=== PATIENT | female | born 1990 | race Caucasian/White ===

== ENCOUNTER 2021-05-19 07:29 | Inpatient (IN) | payer OTHER, SELFPAY ==
[2021-05-19] VITALS (12 sets, daily range): BP systolic 100–137; BP diastolic 65–99; PULSE 72–196; RESP 16; TEMP 36.2–36.3; O2SAT 83–98; BMI 34.0
--- NOTE | 2021-05-19 07:25 | POC_PTH ---
PATIENT: SHEREEN MCKEON LOC: [facility] U#:[id number] AGE/SX: 30/F ROOM: WP021 RE05/19/[address]: Elisabet Moreau CNM : 1990 BED: 1 DIS: 05/19/2021 SPEC #: [id number] RECD: 05/19/21 09:46 STATUS: SHAMIR NAVARRO #: [id number] VIN: 05/19/21 07:[address]: Elisabet Moreau DEPT: SURGICAL PATHOLOGY RECD BY: Amairani Chaney Tissues: Product of conception, NOS Procedures: Surgery Specimen Level IV HEADER OPERATION: Vaginal delivery PRE-OP DIAGNOSIS: demise TISSUE SUBMITTED: Placenta MICROSCOPIC DIAGNOSIS Immature placenta, 20 weeks (85 gm): Umbilical cord ? no evidence of funisitis. Placental membranes ? acute deciduitis. Placental disc ? acute deciduitis, increased intraparenchymal fibrin plaques and autolytic changes. AM:heri 05/22/2021 MICROSCOPIC DESCRIPTION Slides are reviewed. GROSS DESCRIPTION SPECIMEN: PLACENTA / CLINICAL INFORMATION: A. Weight: Not noted B. Gestational Age: 20 weeks C. Sex: Female Received fresh for Anora study. A portion of tissue is submitted for Anora studies. PLACENTAL WEIGHT (POST FIXATION): 85 gm PLACENTAL DIMENSIONS: 9 x 7 x 2 cm PLACENTAL SHAPE: Usual ovoid. It is disrupted. PLACENTAL WEIGHT FOR GESTATIONAL AGE: Under 10th percentile MEMBRANES - Present A. Insertion: Marginal B. Site of rupture from edge: The membranes are fragmented and distance of rupture cannot be assessed. C. Color of membrane: Gutierrez-voss D. Abnormalities: None UMBILICAL CORD - Present A. Color: Gutierrez-voss B. Insertion: Paracentral C. Length: 15 cm D. Diameter: 0.1 to 0.3 cm E. Number of vessels: Cannot be assessed. F. Abnormalities: None PLACENTAL DISC - Present A. Color of surface: Gutierrez-voss B. surface abnormalities: None C. Maternal cotyledons: Intact with minimal tears. Focal area of maternal surface show blood clots. D. Attached retro placental clot: No clot E. Cut surface: Dark red and spongy F. Lesions: None G. Separate clot: Absent SECTIONS SUBMITTED: 1. Membrane roll 2. Cord, end inked black 3. Placental disc, and maternal surfaces 4. Placental disc, and maternal surfaces 5. Placental disc, and maternal surfaces 6. Placental disc, and maternal surfaces SJ:heri 05/19/21 TC:2 CPT: 30152 ADDENDUM ADDENDUM ADDENDUM ADDENDUM ADDENDUM ADDENDUM ADDENDUM ADDENDUM ADDENDUM 05/30/2021 10:19 ADDENDUM 05/30/2021 10:19 ADDENDUM 05/30/2021 10:19 ADDENDUM 05/30/2021 10:19 ADDENDUM 05/30/2021 10:19 [facility] MICROARRAY CHROMOSOME ANALYSIS WITH PARENTAL SUPPORT RESULT: Normal female MICROARRAY RESULT: arr(1-22,X)x2 CLINICAL INTERPRETATION: Normal female result. Maternal cell contamination has been ruled out. Please see complete report in e-chart or EMR
[2021-05-19] MEDS: Oxytocin 10 UNITS/ML Vial IM (07:34)
--- NOTE | 2021-05-19 07:59 | PCM.HP.OB ---
HPI - General General Date of Admission: 05/19/21 HPI Narrative SHEREEN MCKEON, is a 30 F at 20.1 weeks gestation that presents for induction of labor for IUFD discovered yesterday in office via ultrasound. Maternal Data Information ANGEL Calculator Estimated Delivery Date Method Current WG Current Estimate 10/05/21 Manual 20w 1d PFSH PFSH Home Medications magnesium oxide 500 mg PO DAILY 05/26/17 [History Last Taken 05/25/17] vit no.[id number] [ Vitamins] 1 ea PO DAILY 05/26/17 [History Last Taken 05/25/17] sertraline [Zoloft] 100 mg PO DAILY 05/26/17 [History Last Taken 05/25/17] Allergy/AdvReac Type Severity Reaction Status Date / Time No Known Allergies Allergy Verified 05/26/17 03:06 Social History Smoking Status: Never smoker History Elective abortions Hx Para 1 Spontaneous abortions Hx # Term Pregnancies Ectopic pregnancies Hx # Pregnancies Multiple births # of living children ROS Eyes Eyes: Denies blurry vision, change in vision or spots in vision ENT HEENT: Denies dizziness or headache(s) Cardiovascular Cardiovascular: Denies abdominal pain, chest pain or dyspnea Respiratory/Chest Respiratory/Chest: Denies cough, dyspnea, shortness of breath at rest or shortness of breath with exertion Gastrointestinal Gastrointestinal: Denies abdominal pain, diarrhea or vomiting Genitourinary Genitourinary: Denies change in urinary stream, difficulty urinating or dysuria Musculoskeletal Musculoskeletal: Reports none Integumentary Integumentary: Denies rash Neurologic Neurologic: Denies dizziness, headache(s), memory loss or weakness Psychiatric Psychiatric: Reports none Vital Signs Vital Signs Vital Signs: 05/19/21 07:43 Pulse Rate 77 Blood Pressure 122/78 H BP Systolic 122 BP Diastolic 78 Physical Exam Const alert, oriented x3 and no apparent distress General Appearance: cooperative Orientation / Consciousness: awake Exam Limitations: no limitations HEENT normocephalic Head and Scalp: normal to inspection Eyes General Eye: normal appearance of both eyes Neck full ROM and no lymphadenopathy Lymph Lymphatic: no lymphadenopathy noted Chest inspection of chest normal Resp normal respiratory effort, normal air movement and clear to auscultation bilaterally Effort and Inspection: able to speak in complete sentences and symmetric chest movement Cardio regular rate and regular rhythm GI normal to inspection, nondistended, normoactive bowel sounds Manual OB Exam: presentation cephalic, dilated 4, effaced 80 and station 0 Amniotic Fluid: clear amniotic fluid Back/Spine normal ROM Extremity full ROM and no calf tenderness Skin no rashes or lesions noted General Skin Exam: no breakdown Neuro oriented x3 and CN's II-XII intact bilaterally Psych mental status grossly normal and thought process normal Labs Labs Labs: Blood Type A POSITIVE Antibody Screen NEGATIVE Hct 37.0 % (37-47) Hgb 11.8 g/dl (12.0-15.0) L Rubella IgG Antibody 364.3 IU/mL Hep Bs Antigen Negative (Negative) C.trachomatis DNA (PCR) Negative (Negative) Glucose 1 Hr 50 gm 129 mg/dL (70-140) Group B Strep DNA POSITIVE (Negative) H Rhogam given: No Assessment & Plan (1) IUFD at 20 weeks or more of gestation: PLAN: Admit to labor and delivery Routine labs Start IV fluids and titrate per orders Anticipate Dr. Nelson aware and collaborating physician
--- NOTE | 2021-05-19 08:09 | EX.PCM.OBRPT ---
Assessment & Plan (1) (spontaneous vaginal delivery): Maternal Data Information ANGEL Calculator Estimated Delivery Date Method Current Current Estimate 10/05/21 Manual 20w 1d Vaginal Delivery Maternal Presentation Maternal Presentation: Patient for induction of labor for IUFD Type of Induction: Cytotec Medical Reason for Induction: demise Operative Information Date of Procedure: 05/19/21 Type of Anesthesia: None Estimated Blood Loss: 50 Time of Delivery: 07:25 Findings Description of Procedure: Patient arrived to unit for induction of labor for IUFD discovered yesterday in office via ultrasound. Patient up to bathroom in room and and felt a gush of fluid and vaginal pressure. Nursing assisted patient to floor on blanket. Patient delivered non viable fetus intact. No gross movements noted. Cord clamped and cut. Pitocin 10 mg IM given x1. Patient assisted back to bed. I left the room and was called back due to feeling additional pressure. Placenta delivered spontaneously and intact. Dr. Nelson at bedside and vaginal exam completed. EBL 50cc. Post Vaginal Delivery Medications Given After Delivery: - (IM Pitocin) Complication Complications: None
--- NOTE | 2021-05-19 08:44 | PCM.DC ---
Discharge Instructions Diet Discharge Diet: No restrictions Activity May resume sexual activity in: 6-8 weeks Weight Bearing Status: Weight bearing as tolerated Dressing / Incision Call your doctor if you observe: Fever of 101 or Higher, Inability to urinate, Using more than 1 pad per hour, Shortness of breath, Chest pain, Calf discomfort and Uncontrolled pain Follow Up Care Test Results: Test results from this visit will be discussed in further detail at your follow-up appointment, if applicable. Discharge Plan Admission Admit Date/Time: 05/19/21 07:29 Primary Reason for Your Visit: delivery Attending Provider: Elisabet Moreau Discharge Orders/Prescriptions Prescriptions: No Action sertraline [Zoloft] 100 MG tablet 100 mg PO DAILY RF: 0 magnesium oxide 500 MG capsule 500 mg PO DAILY RF: 0 vit no.[id number] [ Vitamin] 1 EACH tablet 1 ea PO DAILY RF: 0 Disposition Disposition (needs filled in before D/C Order can be placed): Home, Self Care
[2021-05-19 09:07] LABS: Absolute Lymphocyte Count 1.24 X10^3/uL (0.83-4.51); Absolute Neutrophil Count 6.2 X10^3/uL (2.0-7.7); Basophil# 0.03 X10^3/uL; Basophil% 0.4 % (0-1); Eosinophil# 0.06 X10^3/uL; Eosinophils% 0.8 % (0-5); Hemoglobin 12.4 g/dL (12.0-15.0); Lymphocyte # 1.24 X10^3/ul (0.83-4.51); Lymphocyte % 15.8 % (19-41); Mean Corp Hgb Conc 34.4 g/dL (32-36); Mean Corpuscular Hgb 30.2 pg (27.0-32.0); Mean Corpuscular Volume 87.6 fL (81-99); Mean Platelet Vol. 10.2 fl (6.2-12.0); Monocyte# 0.35 X10^3/uL; Monocyte% 4.5 % (0-10); NRBC Flagged by Analyzer 0 % (0-5); Neutrophil # 6.15 X10^3/uL (2.7-7.7); Neutrophil % 78.2 % (47-70); Platelet Count 172 K/mm3 (150-450); RBC Distribution Width CV 12.4 % (11.6-14.6); RBC Distribution Width SD 39.6 fl (35.1-43.9); Red Blood Count 4.11 M/mm3 (4.2-5.4); White Blood Count 7.9 K/mm3 (4.4-11.0)
--- NOTE | 2021-05-19 09:44 | NURSING ---
Two doses of cytotec taken at home per patient. Last dose at 0100. Pt felt mild cramping prior to delivery.
[2021-05-19] MEDS: Naproxen 500 MG Tablet PO (10:01)
--- NOTE | 2021-05-19 12:00 | NURSING ---
late entry: infant weight 2oz / 6in long. head circumference 4in
[2021-05-19 14:05] LABS: Kleihauer-Betke Negative
[2021-05-22 14:11] LABS: Pathology Specimen OB SEE PATHOLOGY REPORT
== END 2021-05-19 12:30 | disposition home or self-care (01) | DRG 807 ==
PROVIDERS: Admitting Provider Advanced Practice Midwife; Visit Provider Advanced Practice Midwife
DX: O36.4XX0 Maternal care for intrauterine death, not applicable or unspecified (principal); Z37.1 Single stillbirth; Z3A.20 20 weeks gestation of pregnancy
CPT/HCPCS: 85025; 85460; 86850; 86900; 86901; 88305

== ENCOUNTER 2021-10-27 09:37 | Outpatient (CLI) | payer OTHER, SELFPAY ==
[2021-10-27 09:51] VITALS: BP 126/70; PULSE 74; RESP 16; TEMP 36.4; O2SAT 98; BMI 35.5
[2021-10-27] MEDS: 0.9% NaCl Peripheral Flush Adult/Peds IV (10:18)
[2021-10-27] MEDS: Lactated Ringers 1,000 ML 999 ML IV (10:20)
[2021-10-27 10:28] LABS: Hematocrit 34.2 % (37-47); Hemoglobin 11.7 g/dL (12.0-15.0); Mean Corp Hgb Conc 34.2 g/dL (32-36); Mean Corpuscular Hgb 28.5 pg (27.0-32.0); Mean Corpuscular Volume 83.4 fL (81-99); Platelet Count 194 K/mm3 (150-450); RBC Distribution Width CV 13.2 % (11.6-14.6); RBC Distribution Width SD 39.7 fl (35.1-43.9); White Blood Count 5.5 K/mm3 (4.4-11.0)
[2021-10-27 10:54] LABS: ALB/GLOB Ratio 1.1 RATIO (0.9-2.4); AST(SGOT) 28 U/L (15-37); Alanine Aminotransfer ALT/SGPT 65 U/L (13-56); Albumin, Serum 3.8 g/dL (3.2-5.0); Alkaline Phosphatase 53 U/L (45-117); Anion Gap 5 (5-15); BUN 5 mg/dL (7-18); Calcium,Total 9.1 mg/dL (8.5-10.1); Chloride 108 mmol/L (98-107); Creatinine, Serum 0.56 mg/dL (0.55-1.02); EST Glomerular Filtration Rate 135 mL/min (>60); Est Glom Filt Rate - Afr Amer 163 mL/min (>60); Estimated Creatinine Clearance 104.55 ml/min; Globulin 3.6 g/dL (2.2-4.2); Glucose 77 mg/dL (74-106); Potassium 3.7 mmol/L (3.5-5.1); Protein, Total 7.4 g/dL (6.4-8.2); Sodium Level 137 mmol/L (136-145); Thyroid Stim Hormone (TSH) 0.41 uIU/mL (0.358-3.74)
[2021-10-27] MEDS: 0.9% Normal Saline 1,000 ML 500 ML IV (12:12)
[2021-10-27 14:33] VITALS: BP 105/69; PULSE 81; RESP 16; O2SAT 100
== END 2021-10-27 23:59 | disposition home or self-care (01) ==
LOC: MEDOUTP 09:40
PROVIDERS: Referring Provider Obstetrics & Gynecology; Visit Provider Obstetrics & Gynecology
DX: O21.9 Vomiting of pregnancy, unspecified (principal); Z3A.00 Weeks of gestation of pregnancy not specified
CPT/HCPCS: 96365; 96367; 96361 ×2; 80053; 84443; 85027; J7030; J7120; A4216; J2405; J3490

== ENCOUNTER 2021-11-28 12:28 | Day surgery (SDC) | payer OTHER, SELFPAY ==
--- NOTE | 2021-11-27 16:20 | PCM.HP.BLA ---
History and Physical Date of Admission: 11/28/21 Pre-Op History and Physical- VIRTUAL ? HPI: The patient is a 31 year old female presenting for pre-operative visit. She is scheduled for Suction D&C, for missed ab 12 weeks on 11/28/21. Procedure discussed along with risks, benefits and complications. Other alternatives discussed for management. Consent form signed? No. WILL SIGN CONSENT day of surgery ? ? PAST MEDICAL HISTORY PAST MEDICAL HISTORY Diagnosis Date ? anxiety ? ? gestational hypertension ? ? ? PAST SURGICAL HISTORY PAST SURGICAL HISTORY Procedure Laterality Date ? PAST SURGICAL HISTORY OF ? ? ? wisdom teeth ? PAST SURGICAL HISTORY OF ? 2012 ? sebacious cyst removed from head ? ? ? CURRENT MEDICATIONS Current Outpatient Medications Medication Sig Dispense Refill ? promethazine (PHENERGAN) 25 mg tablet Take 0.5-1 tablets by mouth every 6 hours as needed. 30 tablet 1 ? ondansetron (ZOFRAN) 4 mg tablet Take 1 tablet by mouth every 8 hours as needed for nausea/vomiting. 30 tablet 1 ? multivitamin (CLASSIC ) 28 mg iron- 800 mcg tab(s) Take 1 tablet by mouth once daily. ? ? ? magnesium glycinate (MAG GLYCINATE ORAL) Take by mouth. ? ? ? sertraline (ZOLOFT) 100 mg tablet Take 1 tablet by mouth once daily. 90 tablet 3 ? No current facility-administered medications for this visit. ? ? ALLERGIES: Patient has no known allergies. ? PERSONAL HISTORY: SOCIAL HISTORY Social History ? Tobacco Use ? Smoking status: Never Smoker ? Smokeless tobacco: Never Used Vaping Use ? Vaping Use: Never used Substance Use Topics ? Alcohol use: No ? Drug use: No ? FAMILY HISTORY: FAMILY HISTORY FAMILY HISTORY Problem Relation Age of Onset ? Breast Cancer Mother 28 ? No Known Problems Father ? ? No Known Problems Sister ? ? No Known Problems Brother ? ? Breast Cancer Maternal Grandmother ? ? Hypertension Maternal Grandfather ? ? No Known Problems Paternal Grandmother ? ? No Known Problems Paternal Grandfather ? ? Breast Cancer Other ? ? MMGMO ? No Known Problems Son ? ? No Known Problems Son ? ? ? REVIEW OF SYMPTOMS: negative except as noted above PHYSICAL EXAMINATION: ? VITALS: Last menstrual period 08/26/2021, unknown if currently . ? GENERAL: The patient is well nourished, well hydrated in no acute distress. , The patient is oriented to time, place, and person. NECK: full range of motion ? IMPRESSION: Missed ab 12 weeks ? PLAN: Suction D&C for missed ab ? Pt has been counseled on risks/benefits and alternatives of surgery including but not limited to anesthesia, bleeding, infection, uterine perforation injury to pelvic structures including bowel, bladder, ureters and vessels. Retained products and hemorrhage were reviewed. Pt wishes to proceed with surgery at this time. ? Pt desires Anora testing ? Will sign consent tomorrow - day of surgery ? Doxycycline ordered for POST OP ? ? I have reviewed and updated past medical and surgical history, medications and allergies Eileen Nelson MD ?2:29 PM
[2021-11-28 13:26] VITALS: BP 117/78; PULSE 83; RESP 18; TEMP 36.9; O2SAT 100; BMI 35.5
[2021-11-28 13:29] LABS: Hematocrit 35.2 % (37-47); Mean Corp Hgb Conc 34.1 g/dL (32-36); Mean Corpuscular Hgb 28.6 pg (27.0-32.0); Mean Corpuscular Volume 83.8 fL (81-99); Mean Platelet Vol. 10.3 fl (6.2-12.0); Platelet Count 173 K/mm3 (150-450); RBC Distribution Width CV 12.7 % (11.6-14.6); RBC Distribution Width SD 38.4 fl (35.1-43.9); White Blood Count 7.3 K/mm3 (4.4-11.0)
[2021-11-28] MEDS: Lactated Ringers 1,000 ML 15 ML IV (13:35)
--- NOTE | 2021-11-28 13:55 | EX.PCM.DISCH ---
Discharge Instructions Procedure D&C Diet Discharge Diet: No restrictions Activity May resume sexual activity in: 1 week Dressing / Incision Call your doctor if you observe: Fever of 101 or Higher, Inability to urinate, Using more than 1 pad per hour and Uncontrolled pain Follow Up Care Please Follow Up With: Eileen Castañeda MD When: 1-2 weeks post OP if you need an appointment please call [phone] Test Results: Test results from this visit will be discussed in further detail at your follow-up appointment, if applicable. Discharge Plan Admission Attending Provider: Eileen Castañeda Primary Care Provider: Care Physician,Ester Primary Discharge Orders/Prescriptions Prescriptions: Continued sertraline [Zoloft] 100 MG tablet 100 mg PO DAILY RF: 0 Referrals / Follow Up: Care Physician,No Primary [Primary Care Provider] - Disposition Disposition (needs filled in before D/C Order can be placed): Home, Self Care
--- NOTE | 2021-11-28 13:56 | OP.PCM_ITS ---
Problems Associated Problem List Diagnoses (1) Missed : (2) 12 weeks gestation of : Report of Operation Date of Procedure: 11/28/21 Pre-Operative Diagnosis: missed 12 weeks gestation Post-Operative Diagnosis: same Surgery/Procedure Performed:: Suction Dilation and Curettage Description of Surgical Findings:: uterus 12 week size. Ultrasound performed- no apparent retained POC noted Surgeon: Eileen Castañeda extrusion die repair manager: None Type of Anesthesia: MAC Specimen's removed: products of conception Drains: none Estimated Blood Loss (mL): 10 Fluids Replaced: 350 Description of Procedure: After informed consent was obtained patient was taken to OR and placed in supine position. Anesthesia was given. patient was placed in yellow fin stirrups and prepped and draped in normal sterile fashion. bladder was drained with straight catheter with approximately 100cc of clear yellow urine expelled. Weighted speculum placed in posterior fornix of vaginal, single tooth tenaculum was used to gently grasped anterior lip of cervix. . Cervix was then gently dilated in an incremental fashion. Once adequate dilation was achieved the 11mm ghanaian suction catheter was placed attempted 12mm but unable to pass easily. suction curettage performed until no tissue was expelled and cavity was deemed empty. At this time 6mm suction catheter placed and fundal aspect and cornua of uterus were again suctioned as well with no remaining tissue noted. Ultrasound performed, Endometrial stripe seen, no signs of retained POC. The tissue was then sent for ANORA testing. No complications. At this time procedure was deemed complete and successful. Tenaculum removed, speculum removed. Good hemostasis appreciated. Vaginal sweep was negative. Instrument and lap count correct x 2. I anticipate normal postoperative course. Doxycycline given post op. Grafts/Implants Used: none Procedure Start Time: 14:23 Procedure Stop Time: 14:35 Complications none Admit VTE Documentation VTE Present on Admission: Yes VTE Mechan Device Prophylaxis: SCD's VTE Pharm Prophylaxis ordered?: No Reason prophylaxis not ordered:: Procedure Not Indicated
--- NOTE | 2021-11-28 14:00 | POC_PTH ---
PATIENT: SHEREEN MCKEON LOC: [facility] U#:[id number] AGE/SX: 31/F ROOM: RE11/28/[address]: Dr. Eileen Castañeda, MDDOB: 1990 BED: DIS: 11/28/2021 SPEC #: [id number] RECD: 11/28/21 14:52 STATUS: SHAMIR NAVARRO #: [id number] VIN: 11/28/21 14:[address]: Eileen Castañeda DEPT: SURGICAL PATHOLOGY RECD BY: Wendy Boone ENTERED: 11/29/21 10:05 SP TYPE: PROD CONC OTHR DR: No Primary Care Phys Tissues: Product of conception, NOS Procedures: Surgery Specimen Level IV HEADER OPERATION: Dilation and curettage, suction, Anora testing PRE-OP DIAGNOSIS: Missed TISSUE SUBMITTED: Products of conception ? for Anora testing MICROSCOPIC DIAGNOSIS Products of conception: Decidua, immature chorionic villi and tissue (products of conception). See comment. RITCHIE:heri 11/30/2021 COMMENT Results of Anora study will be reported as an addendum. MICROSCOPIC DESCRIPTION Slides are reviewed. GROSS DESCRIPTION Received fresh without fixative is one container labeled with the patient's name and designated products of conception. The specimen consists of multiple fragments of hemorrhagic soft tissue that in aggregate measure 11 x 10 x 2 cm. tissue is not identified. A portion of the specimen is submitted for Anora testing. Deputy Probation Officer tissue is submitted in three cassettes. / RITCHIE:heri 11/29/2021 TC:5 [facility]: [id number]
[2021-11-28 15:00] VITALS: BP 117/78; BP 91/45; PULSE 72; RESP 18; TEMP 36.6; O2SAT 100
[2021-11-28 15:05] VITALS: BP 117/78; BP 98/69; PULSE 77; RESP 16; O2SAT 99
[2021-11-28 15:10] VITALS: BP 103/65; BP 117/78; PULSE 76; RESP 16; O2SAT 100
[2021-11-28 15:11] LABS: Pathology Specimen OB SEE PATHOLOGY REPORT
[2021-11-28 15:20] VITALS: BP 101/71; BP 117/78; PULSE 71; RESP 16; TEMP 36.6; O2SAT 100
[2021-11-28 15:45] VITALS: BP 117/78
== END 2021-11-28 15:45 | disposition home or self-care (01) ==
LOC: SDC 12:31 → AC 12:33
PROVIDERS: Referring Provider Obstetrics & Gynecology; Visit Provider Obstetrics & Gynecology
PROC: (CPT 59812; principal; 2021-11-28 13:45)
DX: O03.4 Incomplete spontaneous abortion without complication (principal); O99.341 Other mental disorders complicating pregnancy, first trimester; F41.9 Anxiety disorder, unspecified; Z79.899 Other long term (current) drug therapy
CPT/HCPCS: 59812; 01965; 85027; 86850; 86900; 86901; 88305; J7120; J2405

== ENCOUNTER → 2022-07-25 | Outpatient (CLI) | payer OTHER, SELFPAY ==
[2022-07-25] MEDS: Lactated Ringers 1,000 ML 999 ML IV (10:30)
[2022-07-25] MEDS: 0.9% NaCl Peripheral Flush Adult/Peds IV (10:30)
[2022-07-25] MEDS: Ondansetron 4 MG/2 ML Vial IV (10:30)
[2022-07-25 10:41] VITALS: BP 120/70; PULSE 70
[2022-07-25 11:45] VITALS: BP 97/67; TEMP 35.9
== END | disposition home or self-care (01) ==
LOC: MEDOUTP 09:50
PROVIDERS: Referring Provider Advanced Practice Midwife; Visit Provider Advanced Practice Midwife
DX: O21.9 Vomiting of pregnancy, unspecified (principal); Z3A.01 Less than 8 weeks gestation of pregnancy
CPT/HCPCS: 96365; 96375; J7120; A4216; J2405

== ENCOUNTER 2023-01-11 20:50 | Outpatient (CLI) | payer OTHER, SELFPAY ==
[2023-01-11 21:08] VITALS: BMI 39.7
[2023-01-11 21:20] VITALS: BP 124/74; PULSE 80
[2023-01-11 21:21] VITALS: TEMP 36.5; O2SAT 98
--- NOTE | 2023-01-13 06:22 | OB.TRI.NOTE ---
HPI - General General Date of Admission: 01/12/23 Date of Service: 01/12/23 Chief Complaint: DFM HPI Narrative SHEREEN MCKEON, is a 32 F who presents with DFM. No other complaints. PFSH PFSH Medical History (Updated 01/13/23 @ 06:[address] Cathy Armas, DO) Anxiety Heartburn History of IBS Hx of sebaceous cyst Hypertension IUFD at 20 weeks or more of gestation Low iron Non-smoker (spontaneous vaginal delivery) Wears glasses Home Medications aspirin 81 mg tablet 81 mg PO DAILY 01/11/23 [History Last Taken 01/11/23 12:00] escitalopram oxalate 20 mg tablet (Lexapro) 20 mg PO DAILY 01/11/23 [History Last Taken 01/11/23 12:00] ferrous sulfate 325 mg (65 mg iron) tablet (Iron (ferrous sulfate)) 1 mg PO DAILY 01/11/23 [History Last Taken 01/11/23 12:00] efphmgnx-mzi-Hs-FA 1 mg tablet 1 tab PO DAILY 01/11/23 [History Last Taken 01/11/23 12:00] Allergy/AdvReac Type Severity Reaction Status Date / Time No Known Allergies Allergy Verified 01/11/23 21:13 Surgical History (Updated 11/27/21 @ 10:53 by Ro Silver) Hx of wisdom tooth extraction Social History Smoking Status: Never smoker History Elective abortions Hx Para 2 Spontaneous abortions Hx # Term Pregnancies Ectopic pregnancies Hx # Pregnancies Multiple births # of living children NST FHR Rate Baby A Baseline: 125 Variability:: Moderate Accelerations:: 10 x 10 Decelerations:: None NST Reactive:: Yes Uterine Activity:: none Assessment & Plan (1) 31 weeks gestation of : (2) Decreased movement: PLAN: NST reactive. D/c home
== END 2023-01-11 21:55 | disposition home or self-care (01) ==
LOC: WPOUT 21:05 → WP 21:06
PROVIDERS: Visit Provider Obstetrics & Gynecology
DX: O36.8130 Decreased fetal movements, third trimester, not applicable or unspecified (principal); Z3A.31 31 weeks gestation of pregnancy
CPT/HCPCS: 59025; 59050; 99221; G0378

== ENCOUNTER 2023-02-19 10:10 | Inpatient (IN) | payer OTHER, SELFPAY ==
[2023-02-19] VITALS (38 sets, daily range): BP systolic 110–156; BP diastolic 61–82; PULSE 64–85; TEMP 36.2–37.2; O2SAT 90–100; BMI 38.7
[2023-02-19] MEDS: Lactated Ringers 1,000 ML 50 ML IV (11:20)
[2023-02-19] MEDS: Acetaminophen 500 MG Tablet PO (11:33)
[2023-02-19] MEDS: Oxytocin 15 Units/NS 250ml 15 UNITS/250 ML IV.SOLN 2 UNITS IV (11:35)
[2023-02-19 11:50] LABS: Absolute Neutrophil Count 6.3 X10^3/uL (2.0-7.7); Basophil# 0.04 X10^3/uL; Basophil% 0.5 % (0-1); Eosinophil# 0.07 X10^3/uL; Eosinophils% 0.9 % (0-5); Hematocrit 37.8 % (37-47); Hemoglobin 12.5 g/dL (12.0-15.0); Lymphocyte % 15.9 % (19-41); Mean Corp Hgb Conc 33.1 g/dL (32-36); Mean Corpuscular Hgb 28.7 pg (27.0-32.0); Mean Corpuscular Volume 86.7 fL (81-99); Monocyte# 0.44 X10^3/uL; Monocyte% 5.4 % (0-10); NRBC Flagged by Analyzer 0 % (0-5); Neutrophil # 6.32 X10^3/uL (2.7-7.7); Neutrophil % 76.9 % (47-70); Platelet Count 158 K/mm3 (150-450); RBC Distribution Width CV 13.5 % (11.6-14.6); RBC Distribution Width SD 42.6 fl (35.1-43.9); Red Blood Count 4.36 M/mm3 (4.2-5.4); White Blood Count 8.2 K/mm3 (4.4-11.0)
--- NOTE | 2023-02-19 11:56 | PLAC_PTH ---
PATIENT: SHEREEN MCKEON LOC: [facility] U#:[id number] AGE/SX: 32/F ROOM: WP021 RE02/19/[address]: Dr. Kelsey Gunderson MD : 1990 BED: 1 DIS: 02/20/2023 SPEC #: [id number] RECD: 02/19/23 23:46 STATUS: SHAMIR REToan #: [id number] VIN: 02/19/23 11:[address]: Kelsey Gunderson DEPT: SURGICAL PATHOLOGY RECD BY: Amairani Chaney ENTERED: 02/20/23 09:44 SP TYPE: PLACENTA OTHR DR: No Primary Care Phys Tissues: A - Placenta, NOS B - parts, NOS Procedures: Surgery Specimen Level IV Surgery Specimen Level V HEADER OPERATION: Not noted PRE-OP DIAGNOSIS: demise 37 weeks TISSUE SUBMITTED: A - Placenta, B - tissue/parental WB MICROSCOPIC DIAGNOSIS A. Chavez placenta (347 gm): Umbilical cord - trivascular with no evidence of inflammation. Placental membranes - focal pigmented macrophages suggestive of meconium staining. Placental disc - foci of organizing intraparenchymal hemorrhage, Rizwan-Edgar change, mildly increased intraparenchymal fibrin plaques. B. Placental tissue, excision: Fragment of placental tissue with increased intraparenchymal fibrin plaques and Rizwan-Edgar change and with focal microcalcifications. Segment of placental vessel, trivascular with no evidence of inflammation. AM:heri 02/21/2023 MICROSCOPIC DESCRIPTION Slides are reviewed. GROSS DESCRIPTION A - SPECIMEN: PLACENTA / CLINICAL INFORMATION: A. Weight: Not noted B. Gestational Age: 37 weeks C. Sex: Not noted PLACENTAL WEIGHT (POST FIXATION): 347 gm PLACENTAL DIMENSIONS: 16.0 x 16.0 x 3.0 cm PLACENTAL SHAPE: Usual ovoid and contains near accessory lobe measuring 8.0 x 5.0 x 2.5 cm PLACENTAL WEIGHT FOR GESTATIONAL AGE: Within 10-99th percentile MEMBRANES - Present A. Insertion: Marginal B. Site of rupture from edge: At edge of placental disc C. Color of membrane: Hooks-voss D. Abnormalities: None UMBILICAL CORD - Present A. Color: Hooks-voss B. Insertion: Eccentric C. Length: 12.0 cm D. Diameter: 1.2 cm E. Number of vessels: Three F. Abnormalities: None PLACENTAL DISC - Present A. Color of surface: Hooks-voss B. surface abnormalities: None C. Maternal cotyledons: Intact with minimal tears D. Attached retro placental clot: No clot E. Cut surface: Dark red and spongy F. Lesions: Serial sections reveal two firm, hooks-white lesions near the placental cord ranging in size from 0.6 to 1.5 cm in greatest dimension. G. Separate clot: Absent SECTIONS SUBMITTED: 1. Umbilical cord ( end notched) 2. Umbilical cord, placental end 3. Membrane roll 4. Placental disc, and maternal surfaces, lesion 5. Placental disc, and maternal surfaces, lesion 6. Placental disc, and maternal surfaces B - Received fresh labeled with the patient's name is a specimen designated tissue. The specimen consists of three fragments of hooks tissue ranging in size from 0.5 to 50.0 cm and consisting of umbilical cord, portion of placenta and one nondescript tissue. A small amount of tissue and portion of placenta are submitted for Anora. Serial sections of the placental tissue does not reveal mass lesions. Serial sections of the umbilical cord reveal three vessels. Convention Services Manager sections are submitted in three cassettes as follows: 1 - placental tissue, 2 - one end of placental cord, 3 - the other end of placental cord. / AM:heri 02/20/2023 TC:5 CPT: 90491, 48516
[2023-02-19 12:00] LABS: Bedside Glucose 74 mg/dL (74-106)
[2023-02-19 12:36] LABS: Syphilis Antibodies Non-reactive
[2023-02-19 13:03] LABS: AST(SGOT) 14 U/L (15-37); Alanine Aminotransfer ALT/SGPT 43 U/L (13-56); Creatinine, Serum 0.61 mg/dL (0.55-1.02); EST Glomerular Filtration Rate 121 mL/min (>60); Est Glom Filt Rate - Afr Amer 146 mL/min (>60); Estimated Creatinine Clearance 94.22 ml/min; Uric Acid 4.2 mg/dL (2.6-6.0)
[2023-02-19 14:28] LABS: Protein:Creat Ratio 146 mg/g CRE (0-200)
[2023-02-19 16:26] LABS: Bedside Glucose 75 mg/dL (74-106)
[2023-02-19] MEDS: LACTATED RINGERS 500 ML 999 ML IV (18:18)
[2023-02-19] MEDS: fentaNYL-bupivacaine (epidural) 100 ML BAG EPIDURAL (20:00)
--- NOTE | 2023-02-19 20:50 | PCM.HP.OB ---
HPI - General General Date of Admission: 02/19/23 Date of Service: 02/19/23 Chief Complaint: demise HPI Narrative SHEREEN MCKEON, is a 32 F -1-2-2 who presents at 37 weeks gestation. Her has been complicated to date by lagging head growth, estimated weight in the 13th percentile, history of previous 20-week loss, and gestational diabetes. She presented to the office today and states she had good movement last night. She presented for an ultrasound and there were no heart tones detected. Maternal Data Information Final ANGEL: 03[birth year] Gestational age: 37 0/7 [facility] Medical History (Updated 02/19/23 @ 20:[address] Kelsey Gunderson MD) Anxiety Gestational diabetes Gestational HTN Heartburn History of IBS Hx of sebaceous cyst Hypertension IUFD at 20 weeks or more of gestation Low iron Non-smoker (spontaneous vaginal delivery) Wears glasses Home Medications aspirin 81 mg tablet 81 mg PO DAILY ghtn, hx pre-e, demises 01/11/23 [History Last Taken 02/18/23 12:00 162 mg] escitalopram oxalate 20 mg tablet (Lexapro) 20 mg PO DAILY anxiety/depression 01/11/23 [History Last Taken 02/18/23 12:15 20 mg] ferrous sulfate 325 mg (65 mg iron) tablet (Iron (ferrous sulfate)) 1 mg PO DAILY anemia 01/11/23 [History Last Taken 01/11/23 12:00] upwoupfo-vuz-Nd-FA 1 mg tablet 1 tab PO DAILY 01/11/23 [History Last Taken 02/18/23 20:00 1 TAB] Allergy/AdvReac Type Severity Reaction Status Date / Time No Known Allergies Allergy Verified 02/19/23 12:06 Surgical History (Updated 02/19/23 @ 12:27 by Brigitte Crews) H/O dilation and curettage Hx of wisdom tooth extraction Social History Smoking Status: Never smoker History Elective abortions Hx Para 3 Spontaneous abortions Hx # Term Pregnancies Ectopic pregnancies Hx # Pregnancies Multiple births # of living children ROS Constitutional Constitutional: Denies fatigue, fever(s) or malaise Eyes Eyes: Denies change in vision ENT HEENT: Denies dizziness or headache(s) Cardiovascular Cardiovascular: Denies chest pain, dyspnea or lightheadedness Respiratory/Chest Respiratory/Chest: Denies cough or dyspnea Gastrointestinal Gastrointestinal: Denies change in bowel habits Genitourinary Genitourinary: Denies burning urination or genital lesions Integumentary Integumentary: Denies rash Neurologic Neurologic: Denies confusion, dizziness, headache(s), numbness or weakness Vital Signs Vital Signs Vital Signs: 02/19/23 10:58 02/19/23 10:58 02/19/23 10:58 Temperature Temperature Source Oral Pulse Rate 74 Blood Pressure 133/82 H BP Systolic 133 BP Diastolic 82 Pulse Ox 02/19/23 10:58 02/19/23 13:12 02/19/23 13:12 Temperature 98.9 F Temperature Source Pulse Rate 71 Blood Pressure 128/76 H BP Systolic 128 BP Diastolic 76 Pulse Ox 02/19/23 13:12 02/19/23 14:56 02/19/23 14:56 Temperature Temperature Source Pulse Rate 67 Blood Pressure 138/76 H BP Systolic 138 BP Diastolic 76 Pulse Ox 100 02/19/23 14:56 02/19/23 14:57 02/19/23 14:57 Temperature Temperature Source Oral Pulse Rate 71 Blood Pressure BP Systolic BP Diastolic Pulse Ox 100 02/19/23 14:56 02/19/23 16:32 02/19/23 16:32 Temperature 98.6 F Temperature Source Pulse Rate 76 Blood Pressure 132/78 H BP Systolic 132 BP Diastolic 78 Pulse Ox 02/19/23 16:32 02/19/23 16:32 02/19/23 17:26 Temperature 97.9 F Temperature Source Oral Pulse Rate Blood Pressure 116/78 BP Systolic 116 BP Diastolic 78 Pulse Ox 02/19/23 17:26 02/19/23 17:26 02/19/23 17:26 Temperature 98.9 F Temperature Source Oral Pulse Rate 68 Blood Pressure BP Systolic BP Diastolic Pulse Ox 02/19/23 18:23 02/19/23 18:23 02/19/23 18:23 Temperature Temperature Source Oral Pulse Rate 65 Blood Pressure 139/81 H BP Systolic 139 BP Diastolic 81 Pulse Ox 02/19/23 19:05 02/19/23 19:05 02/19/23 19:06 Temperature Temperature Source Pulse Rate 81 Blood Pressure 156/81 H BP Systolic 156 BP Diastolic 81 Pulse Ox 100 02/19/23 19:06 02/19/23 19:08 02/19/23 19:08 Temperature Temperature Source Pulse Rate 82 75 Blood Pressure 156/80 H BP Systolic 156 BP Diastolic 80 Pulse Ox 02/19/23 19:10 02/19/23 19:10 02/19/23 19:13 Temperature Temperature Source Pulse Rate 79 Blood Pressure 129/75 H BP Systolic 129 BP Diastolic 75 Pulse Ox 100 02/19/23 19:13 02/19/23 19:15 02/19/23 19:15 Temperature Temperature Source Pulse Rate 73 72 Blood Pressure BP Systolic BP Diastolic Pulse Ox 100 02/19/23 19:16 02/19/23 19:16 02/19/23 19:18 Temperature Temperature Source Pulse Rate 85 Blood Pressure 145/69 H BP Systolic 145 BP Diastolic 69 Pulse Ox 90 02/19/23 19:18 02/19/23 19:20 02/19/23 19:20 Temperature Temperature Source Pulse Rate 75 78 Blood Pressure BP Systolic BP Diastolic Pulse Ox 100 02/19/23 19:23 02/19/23 19:23 02/19/23 19:25 Temperature Temperature Source Pulse Rate 74 73 Blood Pressure 131/70 H BP Systolic 131 BP Diastolic 70 Pulse Ox 02/19/23 19:25 02/19/23 19:28 02/19/23 19:28 Temperature Temperature Source Pulse Rate 76 Blood Pressure 125/69 H BP Systolic 125 BP Diastolic 69 Pulse Ox 100 02/19/23 19:30 02/19/23 19:30 02/19/23 19:33 Temperature Temperature Source Pulse Rate 75 Blood Pressure 134/66 H BP Systolic 134 BP Diastolic 66 Pulse Ox 100 02/19/23 19:33 02/19/23 19:35 02/19/23 19:35 Temperature Temperature Source Pulse Rate 65 69 Blood Pressure BP Systolic BP Diastolic Pulse Ox 100 02/19/23 19:38 02/19/23 19:38 02/19/23 19:40 Temperature Temperature Source Pulse Rate 70 66 Blood Pressure 122/73 H BP Systolic 122 BP Diastolic 73 Pulse Ox 02/19/23 19:40 02/19/23 19:43 02/19/23 19:43 Temperature Temperature Source Pulse Rate 76 Blood Pressure 113/71 BP Systolic 113 BP Diastolic 71 Pulse Ox 100 02/19/23 19:45 02/19/23 19:45 02/19/23 19:48 Temperature Temperature Source Pulse Rate 66 Blood Pressure 121/71 H BP Systolic 121 BP Diastolic 71 Pulse Ox 100 02/19/23 19:48 02/19/23 19:50 02/19/23 19:50 Temperature Temperature Source Pulse Rate 66 64 Blood Pressure BP Systolic BP Diastolic Pulse Ox 100 02/19/23 19:54 02/19/23 19:55 02/19/23 19:55 Temperature Temperature Source Temporal Pulse Rate 70 Blood Pressure BP Systolic BP Diastolic Pulse Ox 100 02/19/23 19:54 02/19/23 20:11 02/19/23 20:11 Temperature 98.1 F Temperature Source Pulse Rate 67 Blood Pressure 110/68 BP Systolic 110 BP Diastolic 68 Pulse Ox Weight Weight: 89.811 kg Body Mass Index (BMI) 38.7 Physical Exam Const alert and no apparent distress General Appearance: cooperative HEENT normocephalic Resp normal respiratory effort Cardio regular rate GI soft to palpation GI Narrative: gravid, nontender, appropriate for gestational age Extremity no calf tenderness General Extremity: edema Skin no wounds Rashes: No rashes noted Psych activity/motor behavior normal Labs Labs Labs: Blood Type A POSITIVE Antibody Screen NEGATIVE Hct 37.8 % (37-47) Hgb 12.5 g/dL (12.0-15.0) Syphilis Total Ab Non-reactive Rubella IgG Antibody 364.3 IU/mL Hep Bs Antigen Negative (Negative) Glucose 1 Hr 50 gm 129 mg/dL (70-140) Group B Strep DNA POSITIVE (Negative) H Rhogam given: No Assessment & Plan (1) High risk multigravida in third trimester: PLAN: High risk multigravida with full-term intrauterine demise. Risk benefits and alternatives to various delivery options were discussed with patient, her questions were answered to her satisfaction she desires to proceed. Blood pressure is mildly elevated in the office today. Check preeclampsia labs. Estimated weight is less than 4000 g clinically and pelvis is clinically adequate to expect vaginal delivery. Patient to proceed with Pitocin and artificial rupture membrane induction. May have routine pain control measures as needed and desired. Patient does desire to have chromosomal analysis on the fetus. (2) 37 weeks gestation of :
[2023-02-19] MEDS: Lactated Ringers 1,000 ML 200 ML IV (21:08)
[2023-02-19 21:19] LABS: Bedside Glucose 71 mg/dL (74-106)
--- NOTE | 2023-02-19 23:03 | EX.PCM.OBRPT ---
Assessment & Plan (1) IUFD (intrauterine ): (2) 37 weeks gestation of : Maternal Data Information Final ANGEL: 03[birth year] Gestational age: 37 0/7 Vaginal Delivery Maternal Presentation Maternal Presentation: Medically Indicated Induction Type of Induction: Pitocin and Amniotomy Medical Reason for Induction: demise Operative Information Date of Procedure: 02/19/23 Pre-Operative Diagnosis: IUFD, labor Post-Operative Diagnosis: same Surgery / Procedure Performed: Forceps Assisted Vaginal Delivery Type of Anesthesia: Epidural Drain: Acosta to straight drain Estimated Blood Loss: 300 Findings Description of Procedure: A female was delivered BLAIR over an intact perineum. A loose nuchal cord ?1 was easily reduced. The remainder the infant was delivered with maternal pushing and gentle traction only in less than 15 seconds. The infant was limp and voss. There were no respiratory efforts and no heart rate. The Pitocin infusion was initiated for active management of the third stage. The cord was clamped and cut . The was placed on the maternal abdomen the placenta was delivered spontaneously and intact. It was a bilobed placenta. There were no knots in the cord. There was no tight nuchal cord. The cervix and vagina were intact. Sponge and needle counts were correct. A vaginal sweep was completed by me. Presentation: BLAIR Amniotic Membrane Rupture Type: Artificial Amniotic Fluid Description: Clear Placental Delivery Description: Spontaneous Placenta Disposition: Sent to Pathology Cord Vessel Description: 3 Vessels Cord Entanglement: Around neck x 1, loose Nuchal Cord Compression: Without compression A Gender: Female (Otilia) (1 minute): 0 (5 minute): 0 Delayed Cord Clamping: No Post Vaginal Delivery Medications Given After Delivery: IV Pitocin Episiotomy Description: None Laceration: None Complication Complications: None
[2023-02-19] MEDS: Oxytocin 15 Units/NS 250ml 15 UNITS/250 ML IV.SOLN 83 UNITS IV (23:20)
[2023-02-20] VITALS (9 sets, daily range): BP systolic 103–134; BP diastolic 55–76; PULSE 71–86; RESP 16; TEMP 36.1–36.9; O2SAT 98–100
[2023-02-20 06:14] LABS: Bedside Glucose 111 mg/dL (74-106)
--- NOTE | 2023-02-20 08:40 | PN.OBGYN_ITS ---
Subjective Subjective Average lochia, pain well controlled. Objective Data Objective Data Vital Signs: Vital Signs Temp Pulse Resp BP Pulse Ox O2 Del Method 97.0 F L 75 16 109/66 99 Room Air 02/20/23 04:12 02/20/23 04:12 02/20/23 04:12 02/20/23 04:12 02/20/23 04:12 02/20/23 04:12 Oxygen Delivery Method Room Air Weight: 89.811 kg Body Mass Index (BMI) 38.7 Intake & Output: Intake and Output for Last 24 Hours 02/18/23 02/19/23 02/20/23 23:59 23:59 23:59 Intake Total 2051.67 / 2051.67 228.25 / 228.25 Output Total 700 / 700 1800 / 1800 Balance 1351.67 / 1351.67 -1571.75 / -1571.75 Lab / Micro Data 02/19/23 11:20 02/19/23 11:20 Labs: Laboratory Results - last 24 hr 02/19/23 11:20: WBC 8.2, RBC 4.36, Hgb 12.5, Hct 37.8, MCV 86.7, MCH 28.7, MCHC 33.1, RDW Std Deviation 42.6, RDW Coeff of Brett 13.5, Plt Count 158, MPV 11.0, Immature Gran % (Auto) 0.400, Neut % (Auto) 76.9 H, Lymph % (Auto) 15.9 L, [place] % (Auto) 5.4, Eos % (Auto) 0.9, Baso % (Auto) 0.5, Absolute Neuts (auto) 6.3, Absolute Lymphs (auto) 1.30, Nucleated RBC % 0, Creatinine 0.61, Estim Creat Clear Calc 94.22, Est GFR (MDRD) Af Amer 146, Est GFR (MDRD) Non-Af 121, Uric Acid 4.2, AST 14 L, ALT 43, Syphilis Total Ab Non-reactive, Blood Type A POSITIVE, Antibody Screen NEGATIVE 02/19/23 11:39: POC Glucose 74 02/19/23 13:55: U Random Total Protein 6.0, Urine Creatinine 41.10, Protein/Creatinin Ratio 146 02/19/23 16:06: POC Glucose 75 02/19/23 20:57: POC Glucose 71 L 02/20/23 05:56: POC Glucose 111 H Physical Exam Const alert and no apparent distress Narrative: Fundus firm, below umbilicus. Assessment & Plan (1) IUFD (intrauterine ): PLAN: PPD #1 s/p . IUFD. Questions answered to bet of my ability. Desires D/c home today. (2) 37 weeks gestation of :
--- NOTE | 2023-02-20 08:44 | DCINST_ITS ---
Discharge Instructions Diet Discharge Diet: No restrictions Activity May resume sexual activity in: 6-8 weeks Weight Bearing Status: Weight bearing as tolerated Dressing / Incision Call your doctor if you observe: Fever of 101 or Higher, Inability to urinate, Using more than 1 pad per hour, Shortness of breath, Chest pain, Calf discomfort and Uncontrolled pain Follow Up Care When: 2 weeks virtual visit/ 6 weeks in office Test Results: Test results from this visit will be discussed in further detail at your follow- up appointment, if applicable. Discharge Plan Admission Admit Date/Time: 02/19/23 10:10 Primary Reason for Your Visit: Delivery Attending Provider: Kelsey Gunderson Primary Care Provider: Care Physician,Ester Primary Discharge Orders/Prescriptions Prescriptions: Continued cygxgwoe-[id number]-FA 1 mg Tablet 1 tab PO DAILY escitalopram oxalate [Lexapro] 20 mg Tablet 20 mg PO DAILY Discontinued ferrous sulfate [Iron (ferrous sulfate)] 325 mg (65 mg iron) Tablet 1 mg PO DAILY aspirin 81 mg Tablet 81 mg PO DAILY Referrals / Follow Up: Care Physician,No Primary [Primary Care Provider] - Disposition Disposition (needs filled in before D/C Order can be placed): Home, Self Care
--- NOTE | 2023-02-20 09:12 | NURSING ---
0845 pt ambulate to bathroom pt gait steady- pt void 600 cc urine and passed approximatley 60 cc clot- reviewed lochia changes and what to expect including when to notify the doctor
--- NOTE | 2023-02-20 10:01 | NURSING ---
IBCLC round to discuss anticipatory guidance with milk coming in in 2-3 days. Different options discussed, as well as outpatient support available for breast discomfort and questions. Patient reports she has a pump at home and is really leaning towards pumping and donating. A pumping after loss brochure given with the [facility] mother's milk bank # and our phone # given to patient. Leatha had a few questions about the donation process and said she would call us with any future questions or concerns. She reports she knows how to use her pump and has plenty of storage bags as she was all set up and ready for this baby.
--- NOTE | 2023-02-20 12:16 | NURSING ---
1135 home here- into see pt
--- NOTE | 2023-02-20 12:17 | NURSING ---
5979 discharge instructions given pt has emotional support from family and is planning on seeing her warp picker this afternoon; pt verbalizes understanding with discharge instructions and plans on calling her doctor if her anxiety or depression worsens or if she feels like hurting herself or someone else.
[2023-02-22 15:42] LABS: Pathology Specimen OB SEE PATHOLOGY REPORT
== END 2023-02-20 11:55 | disposition home or self-care (01) | DRG 807 ==
PROVIDERS: Admitting Provider Obstetrics & Gynecology; Referring Provider Obstetrics & Gynecology; Visit Provider Obstetrics & Gynecology
DX: O36.4XX0 Maternal care for intrauterine death, not applicable or unspecified (principal); Z37.1 Single stillbirth; O26.23 Pregnancy care for patient with recurrent pregnancy loss, third trimester; F41.9 Anxiety disorder, unspecified; O99.344 Other mental disorders complicating childbirth; O43.193 Other malformation of placenta, third trimester; O69.81X0 Labor and delivery complicated by cord around neck, without compression, not applicable or unspecified; Z3A.37 37 weeks gestation of pregnancy; Z79.899 Other long term (current) drug therapy; Z87.59 Personal history of other complications of pregnancy, childbirth and the puerperium
CPT/HCPCS: 82565; 82570; 82962; 84156; 84450; 84460; 84550; 85025; 86780; 86850; 86900; 86901; 88305; 88307; 99221; J7120; G0378

== ENCOUNTER 2023-09-11 10:00 | Outpatient (CLI) | payer OTHER, SELFPAY ==
[2023-09-11] MEDS: Lactated Ringers 1,000 ML 999 ML IV (10:16)
[2023-09-11] MEDS: 0.9% NaCl Peripheral Flush Adult/Peds IV (10:17)
[2023-09-11 10:20] VITALS: BP 110/73; PULSE 78; RESP 16; TEMP 36.2; O2SAT 98; BMI 37.0
[2023-09-11] MEDS: Ondansetron 8 MG in 0.9% Normal Saline (50mL Bag) 50 ML 216 MG IV (10:25)
[2023-09-11 11:56] VITALS: BP 99/64; RESP 16
== END 2023-09-11 10:01 | disposition home or self-care (01) ==
LOC: MEDOUTP 10:01
PROVIDERS: Referring Provider Advanced Practice Midwife; Visit Provider Advanced Practice Midwife
DX: O21.0 Mild hyperemesis gravidarum (principal); Z3A.00 Weeks of gestation of pregnancy not specified
CPT/HCPCS: 96365; J7120; A4216; J2405; J3490

== ENCOUNTER 2024-03-20 13:34 | Outpatient (CLI) | payer OTHER, SELFPAY ==
[2024-03-20 13:49] VITALS: BMI 39.6
[2024-03-20 14:00] VITALS: RESP 16; TEMP 36.7; O2SAT 100
[2024-03-20 14:10] VITALS: BP 131/84; PULSE 80
[2024-03-20 14:11] VITALS: PULSE 88; O2SAT 100
[2024-03-20 14:27] VITALS: BP 129/76; PULSE 85
[2024-03-20 14:41] VITALS: BP 125/76; PULSE 80
[2024-03-20 14:46] LABS: Mucous, Urine 0 SEEN /hpf (<or=2+); Red Blood Cells-Urine 0 SEEN /hpf (0-5); White Blood Cells 0 SEEN /hpf (0-5)
[2024-03-20 14:50] LABS: Color, Urine Straw (Yellow); Glucose, Dipstick Normal (Normal); Ketone-Dipstick Negative (Negative); Leukocyte Esterase-Dipstick 25 /ul (Negative); Nitrite-Dipstick Negative (Negative); Occult Blood-Urine Negative /ul (Negative); Protein-Dipstick Negative (Negative); Urine Bilirubin Dipstick Negative (Negative); Urine Clarity Clear (Clear); Urine Urobilinogen Normal (Normal)
[2024-03-20 14:59] LABS: Bacteria 1+ /hpf (None Seen); Squamous Epithelial Cells - UA 5-10 SEEN /hpf (5-10)
[2024-03-20] MEDS: Nitrofurantoin Macrocrystals 100 MG Capsule PO (16:51)
--- NOTE | 2024-03-20 18:49 | OB.TRI.NOTE ---
HPI - General HPI Narrative SHEREEN MCKEON, is a 33 F who presents to triage with lower pelvic pressure. Positive movement. Maternal Data Information ANGEL Calculator Estimated Delivery Date Method Current WG Current Estimate 04/23/24 Manual 35w 1d Final ANGEL: 04/23/24 PFSH PFSH Medical History (Updated 03/20/24 @ 18:54 by Elisabet Moreau CNM) IUFD (intrauterine ) Gestational HTN Gestational diabetes Wears glasses Anxiety Low iron History of IBS Heartburn Non-smoker Hypertension Hx of sebaceous cyst (spontaneous vaginal delivery) IUFD at 20 weeks or more of gestation Home Medications ?Medication ?Instructions ?Recorded ?Last Taken ?Type escitalopram oxalate 20 mg tablet 20 mg PO DAILY anxiety/depression 01/11/23 02/18/23 12:15 History (Lexapro) 20 mg pkgbkmpk-jol-Lt-FA 1 mg 1 tab PO DAILY 01/11/23 02/18/23 20:00 History tablet 1 TAB metoclopramide HCl 10 mg tablet 10 mg PO DAILY 09/11/23 Unknown History (Reglan) ondansetron 4 mg disintegrating 4 mg PO Q6H 09/11/23 Unknown History tablet progesterone 50 mg/mL 50 mg IM DAILY 09/11/23 Unknown History intramuscular oil promethazine 25 mg tablet 25 mg PO TID PRN nausea and 09/11/23 Unknown History vomiting Allergy/AdvReac Type Severity Reaction Status Date / Time No Known Allergies Allergy Verified 02/19/23 12:06 Surgical History (Updated 02/19/23 @ 12:27 by Brigitte Crews) H/O dilation and curettage Hx of wisdom tooth extraction Social History Smoking Status: Never smoker History Elective abortions Hx Para 3 Spontaneous abortions Hx # Term Pregnancies Ectopic pregnancies Hx # Pregnancies Multiple births # of living children ROS Eyes Eyes: Denies blurry vision Cardiovascular Cardiovascular: Reports none; Denies chest pain at rest, chest pain with activity or dizziness Respiratory/Chest Respiratory/Chest: Denies cough or dyspnea Gastrointestinal Gastrointestinal: Reports none and other; Denies diarrhea or vomiting Genitourinary Genitourinary: Denies dysuria Musculoskeletal Musculoskeletal: Reports none Integumentary Integumentary: Reports none; Denies rash Neurologic Neurologic: Denies dizziness, headache(s) or other visual disturbances Psychiatric Psychiatric: Reports none Physical Exam Const alert and no apparent distress General Appearance: cooperative Orientation / Consciousness: awake Exam Limitations: no limitations HEENT normocephalic Eyes General Eye: normal appearance of both eyes Neck full ROM Chest inspection of chest normal Resp normal respiratory effort and normal air movement Effort and Inspection: symmetric chest movement Auscultation: clear to auscultation bilaterally Cardio regular rate GI soft to palpation, non-tender and non-distended Inspection: and other Back/Spine normal ROM Extremity full ROM, normal capillary refill and no calf tenderness Skin no rashes or lesions noted Neuro oriented x3 and CN's II-XII intact bilaterally Psych mental status grossly normal NST FHR Rate Baby A Baseline: 125 Variability:: Moderate Accelerations:: 15 x 15 Decelerations:: None NST Reactive:: Yes Uterine Activity:: None Assessment & Plan (1) 35 weeks gestation of : (2) Pelvic pressure in : (3) History of IUFD: (4) Anxiety: COMMENT: ON MED PLAN: Plan NST reactive CE- closed No contractions via TOCO or palpated UA- positive for leukocytes and bacteria- start treatment Urine culture sent D/C home with follow up in office this week
== END 2024-03-20 17:00 | disposition home or self-care (01) ==
LOC: WPOUT 13:42 → WP 13:43
PROVIDERS: Referring Provider Advanced Practice Midwife; Visit Provider Advanced Practice Midwife
DX: O99.891 Other specified diseases and conditions complicating pregnancy (principal); R10.2 Pelvic and perineal pain; O99.343 Other mental disorders complicating pregnancy, third trimester; F41.9 Anxiety disorder, unspecified; O09.293 Supervision of pregnancy with other poor reproductive or obstetric history, third trimester; Z3A.35 35 weeks gestation of pregnancy; Z79.899 Other long term (current) drug therapy; Z86.32 Personal history of gestational diabetes; Z87.59 Personal history of other complications of pregnancy, childbirth and the puerperium
CPT/HCPCS: 59025; 59050; 81001; 87086; 87088; 99221; G0378

== ENCOUNTER 2024-03-27 07:30 | Inpatient (IN) | payer OTHER, SELFPAY ==
[2024-03-27] VITALS (15 sets, daily range): BP systolic 115–135; BP diastolic 61–84; PULSE 76–84; RESP 16; TEMP 36.4–36.9; O2SAT 96–99; BMI 39.9
[2024-03-27] MEDS: Lactated Ringers 1,000 ML 50 ML IV (07:25)
[2024-03-27] MEDS: 0.9% Normal Saline Single 100 ML IV.SOLN. INTRA-UTER (08:08)
[2024-03-27 08:27] LABS: Absolute Neutrophil Count 7.4 X10^3/uL (2.0-7.7); Basophil# 0.03 X10^3/uL; Basophil% 0.3 % (0-1); Eosinophil# 0.12 X10^3/uL; Eosinophils% 1.2 % (0-5); Hematocrit 34.9 % (37-47); Hemoglobin 11.5 g/dL (12.0-15.0); Lymphocyte % 17.9 % (19-41); Mean Corpuscular Hgb 28.8 pg (27.0-32.0); Mean Corpuscular Volume 87.3 fL (81-99); Mean Platelet Vol. 10.9 fl (6.2-12.0); Monocyte# 0.58 X10^3/uL; Monocyte% 5.8 % (0-10); NRBC Flagged by Analyzer 0 % (0-5); Neutrophil # 7.44 X10^3/uL (2.7-7.7); Neutrophil % 73.7 % (47-70); Platelet Count 136 K/mm3 (150-450); RBC Distribution Width SD 40.5 fl (35.1-43.9); White Blood Count 10.1 K/mm3 (4.4-11.0)
[2024-03-27] MEDS: Oxytocin 15 Units/NS 250ml 15 UNITS/250 ML IV.SOLN 2 UNITS IV (09:08)
[2024-03-27 10:34] LABS: Syphilis Antibodies Non-reactive
--- NOTE | 2024-03-27 10:54 | PCM.HP.OB ---
HPI - General General Date of Admission: 03/27/24 Date of Service: 03/27/24 Chief Complaint: induction of labor HPI Narrative SHEREEN MCKEON, is a 33 F 7 para 4-3-1-1 2 at 36 and 1 sevenths weeks. History of 20-week demise and 37-week demise presents for induction of labor due to history of demise is and small placentas. Elects for late delivery due to history of unexplained full-term loss at 37 weeks last despite antepartum testing and growth scans. She has had good movement. She denies any vaginal bleeding or leaking of fluid. is complicated date by history of demise, anxiety, gestational diabetes in her last . She had an elevated 1 hour and declined 3-hour and has been checking her blood sugars regularly and they have been well-controlled. We have been considering her class A1 gestational diabetic. She has been taking aspirin and Lovenox due to history of 2 previous losses despite negative thrombophilia workup. Maternal Data Information ANGEL Calculator Estimated Delivery Date Method Current WG Current Estimate 04/23/24 Manual 36w 1d Final ANGEL: 04/23/24 Gestational age: 36 07/28 [facility] Medical History (Updated 03/27/24 @ 11:[address] Kelsey Gunderson MD) IUFD (intrauterine ) Gestational HTN Gestational diabetes Wears glasses Anxiety Low iron History of IBS Heartburn Non-smoker Hypertension Hx of sebaceous cyst (spontaneous vaginal delivery) IUFD at 20 weeks or more of gestation Home Medications ?Medication ?Instructions ?Recorded ?Last Taken ?Type escitalopram oxalate 20 mg tablet 20 mg PO DAILY anxiety/depression 01/11/23 03/26/24 History (Lexapro) [id number]-[id number]-FA 1 mg 1 tab PO DAILY 01/11/23 03/26/24 History tablet aspirin 81 mg tablet,delayed 162 mg PO DAILY 03/27/24 03/26/24 History release (Adult Low Dose Aspirin) enoxaparin 40 mg/0.4 mL 40 mg subcut DAILY 03/27/24 03/25/24 History subcutaneous syringe (Lovenox) famotidine 20 mg tablet 20 mg PO BID 03/27/24 03/26/24 History Allergy/AdvReac Type Severity Reaction Status Date / Time No Known Allergies Allergy Verified 03/27/24 08:58 Surgical History H/O dilation and curettage Hx of wisdom tooth extraction Social History Smoking Status: Never smoker History Elective abortions Hx Para 3 Spontaneous abortions Hx # Term Pregnancies Ectopic pregnancies Hx # Pregnancies Multiple births # of living children ROS Constitutional Constitutional: Denies fatigue, fever(s) or malaise Eyes Eyes: Denies change in vision ENT HEENT: Denies dizziness or headache(s) Cardiovascular Cardiovascular: Denies chest pain, dyspnea or lightheadedness Respiratory/Chest Respiratory/Chest: Denies cough or dyspnea Gastrointestinal Gastrointestinal: Denies change in bowel habits Genitourinary Genitourinary: Denies burning urination or genital lesions Integumentary Integumentary: Denies rash Neurologic Neurologic: Denies confusion, dizziness, headache(s), numbness or weakness Vital Signs Vital Signs Vital Signs: 03/27/24 07:55 03/27/24 07:55 03/27/24 07:55 Temperature 97.8 F Temperature Source Temporal Pulse Rate Respiratory Rate 16 Blood Pressure BP Systolic BP Diastolic Pulse Ox 03/27/24 07:56 03/27/24 07:56 03/27/24 07:56 Temperature Temperature Source Pulse Rate 84 Respiratory Rate Blood Pressure 120/75 BP Systolic 120 BP Diastolic 75 Pulse Ox 96 03/27/24 09:19 03/27/24 09:19 03/27/24 09:19 Temperature Temperature Source Temporal Pulse Rate 78 Respiratory Rate Blood Pressure 117/76 BP Systolic 117 BP Diastolic 76 Pulse Ox 03/27/24 09:19 03/27/24 09:19 Temperature 97.5 F L Temperature Source Pulse Rate Respiratory Rate 16 Blood Pressure BP Systolic BP Diastolic Pulse Ox Weight Weight: 92.805 kg Body Mass Index (BMI) 39.9 Physical Exam Narrative Cervix was 1/50/-2/mid position and medium consistency. Const alert and no apparent distress General Appearance: cooperative HEENT normocephalic Resp normal respiratory effort Cardio regular rate GI soft to palpation GI Narrative: gravid, nontender, appropriate for gestational age Extremity no calf tenderness General Extremity: edema Skin no wounds Rashes: No rashes noted Psych activity/motor behavior normal Labs Labs Labs: Blood Type A POSITIVE Antibody Screen NEGATIVE Hct 34.9 % (37-47) L Hgb 11.5 g/dL (12.0-15.0) L Syphilis Total Ab Non-reactive Rubella IgG Antibody 364.3 IU/mL Hep Bs Antigen Negative (Negative) Hepatitis C Ab (EIA) <0.1 s/co ratio (0.0-0.9) Glucose 1 Hr 50 gm 129 mg/dL (70-140) Group B Strep DNA POSITIVE (Negative) H Rhogam given: No Assessment & Plan (1) History of IUFD: PLAN: Due to history of unexplained third trimester loss at 37 weeks despite antepartum testing with her last , maternal- medicine and patient and I have discussed late delivery. She received steroid injections at 34 weeks in anticipation of late delivery. She understands risks of prematurity. Risk benefits alternatives to induction of labor at this gestational age of and discussed with the patient, her questions were answered to her satisfaction she desires to proceed. Estimated weight is less than 4000 g clinically and pelvis clinically adequate to expect vaginal delivery. May have routine pain control measures as needed. Will check blood sugars and labor. Procedure note: Acosta placed over stylette through the internal cervical os in the usual sterile fashion without difficulty. Balloon inflated to 30 cc and placement over internal os confirmed. Patient and fetus tolerated the procedure well. (2) Maternal obesity syndrome in third trimester: (3) 36 weeks gestation of : (4) Adult BMI 40.0-44.9 kg/sq m: (5) Gestational diabetes mellitus in childbirth, diet controlled:
[2024-03-27 11:38] LABS: Bedside Glucose 72 mg/dL (74-106)
[2024-03-27 11:38] LABS: Bedside Glucose 113 mg/dL (74-106)
[2024-03-27 15:06] LABS: Bedside Glucose 100 mg/dL (74-106)
[2024-03-27] MEDS: 0.9% Saline Lock 10 ML Syringe IV (18:39)
[2024-03-27] MEDS: Acetaminophen 500 MG Tablet PO (19:04)
[2024-03-27 19:18] LABS: Bedside Glucose 114 mg/dL (74-106)
[2024-03-27] MEDS: Oxytocin 15 Units/NS 250ml 15 UNITS/250 ML IV.SOLN 24 UNITS IV (21:34)
[2024-03-27 23:30] LABS: Bedside Glucose 79 mg/dL (74-106)
[2024-03-28] VITALS (75 sets, daily range): BP systolic 100–184; BP diastolic 49–103; PULSE 70–155; RESP 16–18; TEMP 36.4–37; O2SAT 72–100
[2024-03-28] MEDS: Lactated Ringers 1,000 ML 999 ML IV
--- NOTE | 2024-03-28 | PLAC_PTH ---
PATIENT: SHEREEN MCKEON LOC: [facility] U#:[id number] AGE/SX: 33/F ROOM: WP007 RE03/27/[address]: Dr. Cathy Armas DO : 1990 BED: 1 DIS: 03/30/2024 SPEC #: [id number] RECD: 03/28/24 05:41 STATUS: SHAMIR NAVARRO #: [id number] VIN: 03/28/24 00:[address]: Cathy Armas DEPT: SURGICAL PATHOLOGY RECD BY: Wendy Boone ENTERED: 03/30/24 07:14 SP TYPE: PLACENTA OTHR DR: Dr. Eileen Castañeda MD No Primary Care Phys Tissues: Placenta, NOS Procedures: Surgery Specimen Level V HEADER OPERATION: Vaginal delivery PRE-OP DIAGNOSIS: History of IUFD TISSUE SUBMITTED: Placenta MICROSCOPIC DIAGNOSIS Chavez placenta (363 gm): Umbilical cord - Trivascular with no evidence of inflammation Placental membranes - Acute deciduitis Placental disc - Rizwan-Edgar change, intervillous congestion and mild chronic decidual inflammation. AM: 03/31/2024 MICROSCOPIC DESCRIPTION Slides are reviewed. GROSS DESCRIPTION SPECIMEN: PLACENTA / CLINICAL INFORMATION: A. Weight: 2.255 kg B. Gestational Age: 36 weeks C. Sex: Male PLACENTAL WEIGHT (POST FIXATION): 363 gm PLACENTAL DIMENSIONS: 15.0 x 13.5 x 3.0 cm PLACENTAL SHAPE: Usual ovoid PLACENTAL WEIGHT FOR GESTATIONAL AGE: Within 10-99th percentile MEMBRANES - Present A. Insertion: Membranes are inserted 0.5 to 2.0cm away from the margin of placenta B. Site of rupture from edge: 6.0 cm from the margin of placental disc C. Color of membrane: Gutierrez-voss D. Abnormalities: None UMBILICAL CORD - Present A. Color: Gutierrez-voss B. Insertion: Central C. Length: 50.0 cm D. Diameter: 1.5 cm E. Number of vessels: Three F. Abnormalities: None PLACENTAL DISC - Present A. Color of surface: Gutierrez-voss B. surface abnormalities: None C. Maternal cotyledons: Intact with minimal tears D. Attached retro placental clot: No clot E. Cut surface: Dark red and spongy F. Lesions: None G. Separate clot: Multiple blood clots weighing in aggregate 20.0gm and measuring in aggregate 6.0 x 6.0 x 2.0cm. SECTIONS SUBMITTED: (6 cassettes) 1. Membrane roll 2. Cord, maternal end, insertion of membranes away from margin 3. Cord, end, insertion of membranes away from margin 4. Placental disc, and maternal surfaces 5. Placental disc, and maternal surfaces 6. Placental disc, and maternal surfaces SJ.mr 03/30/2024 TC:2 CPT: 46188
[2024-03-28] MEDS: Lactated Ringers 1,000 ML 200 ML IV (00:27)
[2024-03-28] MEDS: fentaNYL-bupivacaine (epidural) 100 ML BAG EPIDURAL (01:12)
[2024-03-28] MEDS: Oxytocin 15 Units/NS 250ml 15 UNITS/250 ML IV.SOLN 334 UNITS IV (04:17)
--- NOTE | 2024-03-28 04:35 | PCM.OPRPT ---
Problems Associated Problem List Diagnoses (1) Vaginal delivery: (2) History of IUFD: (3) Maternal obesity syndrome in third trimester: (4) 36 weeks gestation of : (5) Adult BMI 40.0-44.9 kg/sq m: (6) Gestational diabetes mellitus in childbirth, diet controlled: Report of Operation Date of Procedure: 03/28/24 Pre-Operative Diagnosis: 36 week gestation, history IUFD, A1GDM, obesity, planned induction of labor Post-Operative Diagnosis: As above Surgery/Procedure Performed:: Description of Surgical Findings:: VMI delivered in BLAIR position with loose nuchal cord x 1. Normal appearing placenta with 3 VC Surgeon: Cathy Armas Type of Anesthesia: Epidural Special Medications: None Specimen's removed: Placenta Drains: None Estimated Blood Loss (mL): 100 Fluids Replaced: N/A Description of Procedure: Patient prepped for delivery once complete. With 1 contraction the head of the infant was delivered, and a loose nuchal cord x 1 was noted. The nuchal cord was unable to be reduced as the shoulders and body of the infant quickly delivered without traction, force or delay. A VMI was placed on maternal abdomen. The cord was clamped and cut after a slight delay by FOB. Cord gases were obtained. The placenta delivered spontaneously and was noted to be normal appearing and intact with 3 VC. The placenta was sent to pathology for review. The uterus was explored x 1 and pitocin running. Fundus firm and bleeding hemostatic. There was a small midline abrasion noted over the perineal skin that was bleeding despite pressure, so two interrupted stitches were placed for hemostasis using 3-0 Vicryl. Bleeding hemostatic. Vaginal sweep was performed and sharp and sponge counts were correct. Grafts/Implants Used: None Complications None Admit VTE Documentation VTE Present on Admission: No
[2024-03-28] MEDS: Oxytocin 15 Units/NS 250ml 15 UNITS/250 ML IV.SOLN 83 UNITS IV (04:48)
[2024-03-28 05:44] LABS: Bedside Glucose 81 mg/dL (74-106)
[2024-03-28 05:59] LABS: Bedside Glucose 85 mg/dL (74-106)
[2024-03-28] MEDS: 0.9% Saline Lock 10 ML Syringe IV (08:13)
[2024-03-28] MEDS: Escitalopram Oxalate 20 MG Tablet PO (10:01)
[2024-03-29 04:48] VITALS: BP 123/79; PULSE 84; RESP 16; TEMP 36.2; O2SAT 99
[2024-03-29 05:42] LABS: Bedside Glucose 77 mg/dL (74-106)
[2024-03-29 08:19] VITALS: BP 127/67; PULSE 68; RESP 20; TEMP 37.1; O2SAT 99
[2024-03-29] MEDS: Escitalopram Oxalate 20 MG Tablet PO (09:45)
--- NOTE | 2024-03-29 11:43 | PCM.PN.OB ---
Subjective Subjective Patient is doing well. Pain is well-controlled. She is ambulating and voiding without difficulty. Tolerating a diet without nausea or vomiting. She denies chest pain, shortness of breath, lightheadedness, leg pain. Lochia is normal. Baby doing well. Objective Data Objective Data Vital Signs: Vital Signs Temp Pulse Resp BP Pulse Ox O2 Del Method 98.8 F 68 20 H 127/67 H 99 Room Air 03/29/24 08:19 03/29/24 08:19 03/29/24 08:19 03/29/24 08:19 03/29/24 08:19 03/29/24 08:19 Oxygen Delivery Method Room Air Weight: 204 lb 9.6 oz Body Mass Index (BMI) 39.9 Intake & Output: Intake and Output for Last 24 Hours 03/27/24 03/28/24 03/29/24 23:59 23:59 23:59 Intake Total 210.51 / 210.51 3205.64 / 3205.64 Output Total 1400 / 1400 Balance 210.51 / 210.51 1805.64 / 1805.64 Lab / Micro Data 03/27/24 08:00 Labs: Laboratory Results - last 24 hr 03/29/24 04:55: POC Glucose 77 Physical Exam Const alert and no apparent distress General Appearance: comfortable HEENT normocephalic Resp normal respiratory effort GI soft to palpation, non-tender and non-distended Extremity no calf tenderness Extremity Narrative: Trace edema Assessment & Plan (1) Vaginal delivery: PLAN: Patient and baby doing well. Routine care.
[2024-03-29] MEDS: Senna/Docusate Sodium 1 Tablet PO (13:24)
[2024-03-29 13:25] VITALS: BP 116/88; PULSE 83; RESP 20; TEMP 36.8; O2SAT 96
[2024-03-29 20:30] VITALS: BP 101/65; PULSE 75; RESP 16; TEMP 36.2; O2SAT 99
[2024-03-30 03:00] VITALS: BP 125/87; PULSE 77; RESP 16; TEMP 36.6; O2SAT 99
[2024-03-30] MEDS: Ibuprofen 600 MG Tablet PO (03:14)
[2024-03-30 08:48] VITALS: BP 114/71; PULSE 82; RESP 16; TEMP 36.2; O2SAT 100
--- NOTE | 2024-03-30 09:42 | DCINST_ITS ---
Discharge Instructions Diet Discharge Diet: No restrictions Activity Discharge Activity: Return to Normal Activity, May Drive, May Shower and May Take a Tub Bath May resume sexual activity in: 6 weeks Weight Bearing Status: Full weight bearing Dressing / Incision Call your doctor if you observe: Fever of 101 or Higher, Inability to urinate, Using more than 1 pad per hour, Shortness of breath, Chest pain, Increased palpitations (irregular heartbeat), Calf discomfort and Uncontrolled pain Follow Up Care Please Follow Up With: Dalia Perez CNM When: 2 week virtual visit and 6 week visit Test Results: Test results from this visit will be discussed in further detail at your follow- up appointment, if applicable. Discharge Plan Admission Admit Date/Time: 03/27/24 07:30 Primary Reason for Your Visit: Attending Provider: Cathy Armas Primary Care Provider: Care Ester Mendez Primary Discharge Orders/Prescriptions Prescriptions: New acetaminophen 500 mg Tablet 1,000 mg PO Q6H PRN PRN (Reason: Pain 1-10 Or Fever) Qty: 0 0RF ibuprofen 600 mg Tablet 600 mg PO Q6H PRN PRN (Reason: Pain Score 1-10) Qty: 0 0RF Continued escitalopram oxalate [Lexapro] 20 mg Tablet 20 mg PO DAILY enoxaparin [Lovenox] 40 mg/0.4 mL syringe 40 mg subcut DAILY Discontinued aspirin [Adult Low Dose Aspirin] 81 mg tablet,delayed release (DR/EC) 162 mg PO DAILY famotidine 20 mg tablet 20 mg PO BID No Action [id number] 1 mg Tablet 1 tab PO DAILY Referrals / Follow Up: Care Physician,No Primary [Primary Care Provider] - Disposition Disposition (needs filled in before D/C Order can be placed): Home, Self Care
--- NOTE | 2024-03-30 09:44 | PCM.PN.OB ---
Subjective Subjective Doing well per patient and nursing staff. Ambulating and taking PO without difficulty. Voiding and passing flatus. Pain controlled. , services for assistance. Denies headache, visual changes, chest pain, shortness of breath, leg pain or increased bleeding. Lochia normal. Objective Data Objective Data Vital Signs: Vital Signs Temp Pulse Resp BP Pulse Ox O2 Del Method 97.1 F L 82 16 114/71 100 Room Air 03/30/24 08:48 03/30/24 08:48 03/30/24 08:48 03/30/24 08:48 03/30/24 08:48 03/30/24 08:48 Oxygen Delivery Method Room Air Weight: 204 lb 9.6 oz Body Mass Index (BMI) 39.9 Intake & Output: Intake and Output for Last 24 Hours 03/28/24 03/29/24 03/30/24 23:59 23:59 23:59 Intake Total 3205.64 / 3205.64 Output Total 1400 / 1400 Balance 1805.64 / 1805.64 Lab / Micro Data 03/27/24 08:00 Physical Exam Const alert and oriented x3 General Appearance: cooperative Orientation / Consciousness: awake, oriented to person, oriented to place and oriented to time Exam Limitations: no limitations HEENT normocephalic Head and Scalp: normal to inspection, normocephalic and atraumatic Face and Sinus: normal facial exam Eyes General Eye: normal appearance of both eyes Neck full ROM Chest Chest: symmetrical chest wall rise Resp normal respiratory effort and normal air movement Auscultation: clear to auscultation bilaterally Cardio regular rate, regular rhythm, S1 normal heart sound, S2 normal heart sound, no murmurs, no rub, no gallops and no clicks GI normal to inspection, nondistended, normoactive bowel sounds and non-tender appearance of the vagina normal Bladder / Kidney Exam: no CVA tenderness Back/Spine normal ROM Extremity normal to inspection and full ROM Skin no rashes or lesions noted Neuro oriented x3, CN's II-XII intact bilaterally and moves all extremities Sensorium / Orientation: awake, alert and oriented to person Motor Exam: clonus absent Deep Tendon Reflexes: Rt Patellar (L4): 2+ and Lt Patellar (L4): 2+ Assessment & Plan (1) Vaginal delivery: (2) Lactating mother: (3) Anxiety: COMMENT: ON MED PLAN: Plan 1) Routine PP care 2) lactating 3) Vitals stable 4) D/C home
[2024-03-30] MEDS: Escitalopram Oxalate 20 MG Tablet PO (10:12)
[2024-03-30 23:06] LABS: Pathology Specimen OB SEE PATHOLOGY REPORT
--- NOTE | 2024-04-03 12:19 | NURSING ---
Follow up phone call made, no answer, voicemail left
== END 2024-03-30 11:30 | disposition home or self-care (01) | DRG 805 ==
PROVIDERS: Admitting Provider Obstetrics & Gynecology; Referring Provider Obstetrics & Gynecology; Visit Provider Obstetrics & Gynecology
DX: O26.23 Pregnancy care for patient with recurrent pregnancy loss, third trimester (principal); Z37.0 Single live birth; O60.14X0 Preterm labor third trimester with preterm delivery third trimester, not applicable or unspecified; O24.420 Gestational diabetes mellitus in childbirth, diet controlled; O99.344 Other mental disorders complicating childbirth; F41.9 Anxiety disorder, unspecified; O26.03 Excessive weight gain in pregnancy, third trimester; Z3A.36 36 weeks gestation of pregnancy; O69.81X0 Labor and delivery complicated by cord around neck, without compression, not applicable or unspecified; O70.0 First degree perineal laceration during delivery; Z79.01 Long term (current) use of anticoagulants; Z79.82 Long term (current) use of aspirin; Z79.899 Other long term (current) drug therapy; Z87.59 Personal history of other complications of pregnancy, childbirth and the puerperium
CPT/HCPCS: 59025; 59050; 82962; 85025; 86780; 86850; 86900; 86901; 88307; 99221; J7120; A4216; G0378